=== PATIENT | male | born 1975 | race African-American/Black ===

== ENCOUNTER → 2019-07-05 | Outpatient (CLI) | payer SELFPAY ==
[~2019-07-05] MED LIST: ILOTYCIN5 MG/GM OS; ZOFRAN ODT4 MG PO
== END ==
LOC: COL.RAD 08:15
DX: R10.2 Pelvic and perineal pain (principal); R10.9 Unspecified abdominal pain

== ENCOUNTER → 2020-06-16 | Outpatient (CLI) | payer SELFPAY | LOC: COL.RAD 15:29 | DX: K57.30 Diverticulosis of large intestine without perforation or abscess without bleeding (principal); M16.0 Bilateral primary osteoarthritis of hip ==